=== PATIENT | female | born 1960 | race African-American/Black ===

== ENCOUNTER 2020-12-10 20:24 | Emergency (ER) | payer MEDICARE, MEDICAID ==
[~2020-12-10] VITALS: Ht 162.6 cm; Wt 67.3 kg
[~2020-12-10 20:24] MED LIST: ASPI-1149 PO; CLOP75TA60 PO; DOCU-350 PO; GLYB5 PO; LISI-894 PO; METF-960 PO; NIFE-39 PO; PANT-31 PO; SIMV-260 PO
[2020-12-10] MEDS ORDERED: METF-960 PO (20:36)
[2020-12-10] MEDS ORDERED: XALA2.5OS OU (20:36)
[2020-12-10] MEDS ORDERED: GABA-1181 PO (20:36)
[2020-12-10] MEDS ORDERED: INSU100V SQ (20:36)
[2020-12-10] MEDS ORDERED: METO25 PO (20:36)
[2020-12-10] MEDS ORDERED: BISA-151 PO (20:36)
[2020-12-10] MEDS ORDERED: BACL10TA PO (20:36)
[2020-12-10] MEDS ORDERED: SODIUM CHLORIDE 0.9% 1,000 ML IV ONE (22:30)
[2020-12-10 22:42] LABS: APPEARANCE,URINE CLOUDY (CLEAR); BILIRUBIN,URINE NEGATIVE (NEGATIVE); GLUCOSE, URINE (UA) >=1000 mg/dL (NEGATIVE); KETONES,URINE NEGATIVE (NEGATIVE); LEUKOCYTE ESTERASE ,URINE MODERATE (NEGATIVE); NITRATE,URINE NEGATIVE (NEGATIVE); OCCULT BLOOD,URINE LARGE (NEGATIVE); PH,URINE 5.5 (5.0-8.0); PROTEIN,URINE SEE CONFIRM (NEGATIVE); UROBILINOGEN,URINE 0.2 mg/dL (<=1.0)
[2020-12-10 22:56] LABS: RBC,URINE >100 /HPF (0-2); SULFOSALICYLIC ACID,URINE 3+ (Negative)
[2020-12-10 22:57] LABS: BACTERIA,URINE Moderate /HPF (None Seen); YEAST,URINE Few /HPF (None Seen)
[2020-12-10 22:58] LABS: SQUAMOUS EPITHELIAL CELL,UR Few /LPF (None Seen)
[2020-12-10 23:27] LABS: BASOPHILS % (AUTO) 0.8 % (0.0-2.0); EOSINOPHILS % (AUTO) 1.5 % (1.0-6.0); HEMATOCRIT 37.7 % (36-46); HEMOGLOBIN 12.4 g/dL (12.0-16.0); LYMPHOCYTES # (AUTO) 2.9 K/uL (1.0-4.8); LYMPHOCYTES % (AUTO) 34.4 % (22.0-44.0); MEAN CORPUSCULAR HEMOGLOBIN 28.8 pg (26.0-34.0); MEAN CORPUSCULAR HGB CONC 32.9 G/dL (31.0-37.0); MEAN CORPUSCULAR VOLUME 88 fL (80-100); MONOCYTES # (AUTO) 0.4 K/uL (0.1-1.0); NEUTROPHILS % (AUTO) 58.3 % (40.0-70.0); PLATELET COUNT (AUTO) 335 K/uL (150-450); RED BLOOD CELL COUNT(AUTO) 4.31 MIL/uL (4.00-5.20)
[2020-12-10 23:39] LABS: CREATININE 1.79 mg/dL (0.60-1.30); POTASSIUM 4.4 mmol/L (3.5-5.1)
[2020-12-10] MEDS ORDERED: CEPHALEXIN MONOHYDRATE 500 MG CAPSULE PO ONE (23:45)
[2020-12-10] MEDS ORDERED: PHENAZOPYRIDINE HCL 100 MG TABLET PO ONE (23:45)
[2020-12-10 23:50] LABS: ALBUMIN 3.8 g/dL (3.4-5.0); BILIRUBIN,TOTAL 0.3 mg/dL (0.1-1.0); TOTAL PROTEIN, SERUM 8.4 g/dL (6.4-8.2)
[2020-12-11] MEDS ORDERED: INSULIN REGULAR, HUMAN 100 UNITS/ML IVP ONE (00:15)
[2020-12-11 01:32] VITALS: BP 144/69
[2020-12-11 01:38] LABS: GLUCOSE,POINT OF CARE 183 MG/DL (70-110)
== END 2020-12-11 02:10 | disposition home or self-care (01) ==
LOC: EMS 20:24
DX: N39.0 Urinary tract infection, site not specified (principal); E11.65 Type 2 diabetes mellitus with hyperglycemia; F32.9 Major depressive disorder, single episode, unspecified; I10 Essential (primary) hypertension; F17.210 Nicotine dependence, cigarettes, uncomplicated; Z86.73 Personal history of transient ischemic attack (TIA), and cerebral infarction without residual deficits; Z79.899 Other long term (current) drug therapy; Z79.84 Long term (current) use of oral hypoglycemic drugs; Z88.1 Allergy status to other antibiotic agents
CPT/HCPCS: 36415; 80053; 81001; 82962; 85025; 87077; 87086; 87186; 96361; 96374; 99285; J1815

== ENCOUNTER 2021-04-19 03:18 | Inpatient (IN) | payer MEDICARE, MEDICAID ==
[~2021-04-19] VITALS: Ht 162.6 cm; Wt 63.0 kg
[~2021-04-19 03:18] MED LIST changes: -ASPI-1149 PO; +ASPI325T87 PO; +BACL10TA PO; +BISA-151 PO; +GABA-1181 PO; -GLYB5 PO; +GLYB5TAB10 PO; +INSU100V SQ; +METO25 PO; +XALA2.5OS OU
[2021-04-19 04:06] LABS: BASOPHILS % (AUTO) 0.6 % (0.0-2.0); EOSINOPHILS % (AUTO) 0.6 % (1.0-6.0); HEMOGLOBIN 11.7 g/dL (12.0-16.0); LYMPHOCYTES # (AUTO) 1.9 K/uL (1.0-4.8); LYMPHOCYTES % (AUTO) 26.4 % (22.0-44.0); MEAN CORPUSCULAR HEMOGLOBIN 27.2 pg (26.0-34.0); MEAN CORPUSCULAR HGB CONC 32.5 G/dL (31.0-37.0); MEAN CORPUSCULAR VOLUME 84 fL (80-100); MONOCYTES # (AUTO) 0.3 K/uL (0.1-1.0); MONOCYTES % (AUTO) 4.4 % (2.0-9.0); PLATELET COUNT (AUTO) 350 K/uL (150-450); RED CELL DISTRIBUTION WIDTH 17.2 % (11.5-14.5)
[2021-04-19 04:14] LABS: CALCIUM, TOTAL 8.5 mg/dL (8.8-10.5); CREATININE 1.88 mg/dL (0.60-1.30); POTASSIUM 3.6 mmol/L (3.5-5.1)
[2021-04-19 04:19] LABS: ALBUMIN 3.7 g/dL (3.4-5.0); BILIRUBIN,TOTAL 0.3 mg/dL (0.1-1.0); TOTAL PROTEIN, SERUM 7.4 g/dL (6.4-8.2)
[2021-04-19 05:10] LABS: GLUCOSE,POINT OF CARE 95 MG/DL (70-110)
[2021-04-19 05:43] LABS: COVID AG,FIA SOURCE NASOPHARYNGEAL
[2021-04-19] MEDS ORDERED: DEXTROSE 5%-0.9% SODIUM CHL 1,000 ML IV SCH (05:45)
[2021-04-19 05:49] LABS: APPEARANCE,URINE CLEAR (CLEAR); BILIRUBIN,URINE NEGATIVE (NEGATIVE); GLUCOSE, URINE (UA) NEGATIVE (NEGATIVE); KETONES,URINE NEGATIVE (NEGATIVE); LEUKOCYTE ESTERASE ,URINE TRACE (NEGATIVE); NITRATE,URINE NEGATIVE (NEGATIVE); OCCULT BLOOD,URINE LARGE (NEGATIVE); PH,URINE 5.5 (5.0-8.0); PROTEIN,URINE POS 1+ (NEGATIVE); UROBILINOGEN,URINE 0.2 mg/dL (<=1.0)
[2021-04-19 05:52] LABS: BACTERIA,URINE Few /HPF (None Seen); RBC,URINE 26-50 /HPF (0-2); SQUAMOUS EPITHELIAL CELL,UR Few /LPF (None Seen); WBC,URINE 0-2 /HPF (0-5)
[2021-04-19] MEDS ORDERED: BISACODYL 5 MG EC TABLET PO PRN (06:00)
[2021-04-19] MEDS ORDERED: ONDANSETRON HCL 4 MG/2 ML VIAL IVP PRN (06:00)
[2021-04-19] MEDS ORDERED: ACETAMINOPHEN 325 MG TABLET PO PRN (06:00)
[2021-04-19] MEDS: HEPARIN SODIUM,PORCINE 5,000 UNITS/ML VIAL SQ SCH ×3 (08:00→23:29)
[2021-04-19 08:27] LABS: GLUCOSE,POINT OF CARE 111 MG/DL (70-110)
[2021-04-19] MEDS: METOPROLOL TARTRATE 25 MG TABLET PO SCH ×2 (09:24→21:29)
[2021-04-19] MEDS: ASPIRIN 325 MG DR TABLET PO SCH (09:24)
[2021-04-19] MEDS: CLOPIDOGREL BISULFATE 75 MG TABLET PO SCH (09:24)
[2021-04-19] MEDS: BACLOFEN 10 MG TABLET PO SCH ×2 (09:24→21:28)
[2021-04-19] MEDS: PANTOPRAZOLE SODIUM 40 MG DR TABLET PO SCH (09:24)
[2021-04-19 10:26] VITALS: BP 157/73
[2021-04-19] MEDS: NIFEdipine 60 MG ER TABLET PO SCH (11:02)
[2021-04-19] MEDS: DOCUSATE SODIUM 250 MG CAPSULE PO SCH ×2 (11:03→21:29)
[2021-04-19] MEDS: SIMVASTATIN 20 MG TABLET PO SCH (11:03)
[2021-04-19 15:27] VITALS: BP 146/79
[2021-04-19 16:56] LABS: GLUCOMETER DEV NAME(LOC) 5S.1; GLUCOSE,POINT OF CARE 122 MG/DL (70-110)
[2021-04-19 19:13] VITALS: BP 154/78
[2021-04-19 20:08] LABS: GLUCOMETER DEV NAME(LOC) 5S.1; GLUCOSE,POINT OF CARE 167 MG/DL (70-110)
[2021-04-19] MEDS: LATANOPROST 0.005% 2.5 ML OPHTHALMIC SOLUTION OU SCH (21:28)
[2021-04-19] MEDS: GABAPENTIN 300 MG CAPSULE PO SCH (21:29)
[2021-04-19 21:52] LABS: GLUCOMETER DEV NAME(LOC) 5N.3; GLUCOSE,POINT OF CARE 247 MG/DL (70-110)
[2021-04-19 23:35] VITALS: BP 150/81
[2021-04-20 04:09] VITALS: BP 109/62
[2021-04-20] MEDS ORDERED: INSULIN LISPRO 100 UNITS/ML SQ PRN (06:45)
[2021-04-20] MEDS ORDERED: GLUCAGON,HUMAN RECOMBINANT 1 MG VIAL IM PRN (06:45)
[2021-04-20] MEDS ORDERED: DEXTROSE 50%-WATER 25 GM/50 ML SYG IVP PRN (07:00)
[2021-04-20 08:02] VITALS: BP 117/63
[2021-04-20] MEDS: METOPROLOL TARTRATE 25 MG TABLET PO SCH ×2 (09:00→20:14)
[2021-04-20 09:47] LABS: ALBUMIN 3.7 g/dL (3.4-5.0); BILIRUBIN,TOTAL 0.3 mg/dL (0.1-1.0); CALCIUM, TOTAL 8.7 mg/dL (8.8-10.5); CREATININE 1.69 mg/dL (0.60-1.30); POTASSIUM 4.9 mmol/L (3.5-5.1); TOTAL PROTEIN, SERUM 7.7 g/dL (6.4-8.2)
[2021-04-20] MEDS: HEPARIN SODIUM,PORCINE 5,000 UNITS/ML VIAL SQ SCH ×3 (09:48→23:55)
[2021-04-20] MEDS: PANTOPRAZOLE SODIUM 40 MG DR TABLET PO SCH (09:48)
[2021-04-20] MEDS: DOCUSATE SODIUM 250 MG CAPSULE PO SCH ×2 (09:48→20:14)
[2021-04-20] MEDS: BACLOFEN 10 MG TABLET PO SCH ×2 (09:49→20:13)
[2021-04-20] MEDS: CLOPIDOGREL BISULFATE 75 MG TABLET PO SCH (09:49)
[2021-04-20] MEDS: NIFEdipine 60 MG ER TABLET PO SCH (09:49)
[2021-04-20] MEDS: SIMVASTATIN 20 MG TABLET PO SCH (09:49)
[2021-04-20] MEDS: ASPIRIN 325 MG DR TABLET PO SCH (09:49)
[2021-04-20] MEDS ORDERED: SODIUM CHLORIDE 0.9% 1,000 ML IV ONE (11:15)
[2021-04-20] MEDS: INSULIN LISPRO 100 UNITS/ML SQ PRN ×3 (11:34→20:18)
[2021-04-20 11:46] VITALS: BP 127/76
[2021-04-20 15:27] LABS: APPEARANCE,URINE CLOUDY (CLEAR); BILIRUBIN,URINE NEGATIVE (NEGATIVE); GLUCOSE, URINE (UA) 100 mg/dL (NEGATIVE); KETONES,URINE NEGATIVE (NEGATIVE); LEUKOCYTE ESTERASE ,URINE SMALL (NEGATIVE); NITRATE,URINE NEGATIVE (NEGATIVE); OCCULT BLOOD,URINE LARGE (NEGATIVE); PROTEIN,URINE POS 1+ (NEGATIVE); UROBILINOGEN,URINE 0.2 mg/dL (<=1.0)
[2021-04-20 15:42] VITALS: BP 153/91
[2021-04-20 15:51] LABS: BACTERIA,URINE Many /HPF (None Seen); RBC,URINE 51-100 /HPF (0-2); SQUAMOUS EPITHELIAL CELL,UR Few /LPF (None Seen); WBC,URINE 51-100 /HPF (0-5)
[2021-04-20 16:19] LABS: GLUCOMETER DEV NAME(LOC) 5S.2B; GLUCOSE,POINT OF CARE 258 MG/DL (70-110)
[2021-04-20 19:15] VITALS: BP 101/46
[2021-04-20 20:08] LABS: GLUCOMETER DEV NAME(LOC) 5S.2B; GLUCOSE,POINT OF CARE 189 MG/DL (70-110)
[2021-04-20] MEDS: GABAPENTIN 300 MG CAPSULE PO SCH (20:14)
[2021-04-20] MEDS: INSULIN GLARGINE,HUM.REC.ANLOG 100 UNITS/ML SQ SCH (20:19)
[2021-04-20] MEDS: LATANOPROST 0.005% 2.5 ML OPHTHALMIC SOLUTION OU SCH (20:20)
[2021-04-20 23:29] VITALS: BP 147/92
[2021-04-21 04:45] VITALS: BP 151/87
[2021-04-21 05:24] LABS: GLUCOMETER DEV NAME(LOC) 5S.2B; GLUCOSE,POINT OF CARE 195 MG/DL (70-110)
[2021-04-21] MEDS: INSULIN LISPRO 100 UNITS/ML SQ PRN ×4 (05:42→20:38)
[2021-04-21 06:03] LABS: BASOPHILS % (AUTO) 0.6 % (0.0-2.0); EOSINOPHILS % (AUTO) 1.8 % (1.0-6.0); HEMATOCRIT 37.9 % (36-46); HEMOGLOBIN 12.3 g/dL (12.0-16.0); LYMPHOCYTES # (AUTO) 4.9 K/uL (1.0-4.8); LYMPHOCYTES % (AUTO) 47.3 % (22.0-44.0); MEAN CORPUSCULAR HEMOGLOBIN 27.2 pg (26.0-34.0); MEAN CORPUSCULAR HGB CONC 32.5 G/dL (31.0-37.0); MEAN CORPUSCULAR VOLUME 84 fL (80-100); MONOCYTES # (AUTO) 0.5 K/uL (0.1-1.0); MONOCYTES % (AUTO) 4.7 % (2.0-9.0); NEUTROPHILS # (AUTO) 4.8 K/uL (1.8-7.7); NEUTROPHILS % (AUTO) 45.6 % (40.0-70.0); PLATELET COUNT (AUTO) 404 K/uL (150-450); RED BLOOD CELL COUNT(AUTO) 4.53 MIL/uL (4.00-5.20); RED CELL DISTRIBUTION WIDTH 17.3 % (11.5-14.5)
[2021-04-21 06:59] LABS: CALCIUM, TOTAL 9.2 mg/dL (8.8-10.5); CREATININE 1.5 mg/dL (0.60-1.30); POTASSIUM 4.4 mmol/L (3.5-5.1)
[2021-04-21 07:55] VITALS: BP 108/48
[2021-04-21] MEDS: VANCOMYCIN HCL 1 GM/D5% WATER 200 ML IV SCH (09:32)
[2021-04-21] MEDS ORDERED: SODIUM CHLORIDE 0.9% 250 ML IV ONE (09:33)
[2021-04-21] MEDS: SIMVASTATIN 20 MG TABLET PO SCH (09:40)
[2021-04-21] MEDS: BACLOFEN 10 MG TABLET PO SCH ×2 (09:40→20:36)
[2021-04-21] MEDS: CLOPIDOGREL BISULFATE 75 MG TABLET PO SCH (09:40)
[2021-04-21] MEDS: PANTOPRAZOLE SODIUM 40 MG DR TABLET PO SCH (09:40)
[2021-04-21] MEDS: HEPARIN SODIUM,PORCINE 5,000 UNITS/ML VIAL SQ SCH ×3 (09:40→23:39)
[2021-04-21] MEDS: DOCUSATE SODIUM 250 MG CAPSULE PO SCH ×2 (09:40→20:36)
[2021-04-21] MEDS: ASPIRIN 325 MG DR TABLET PO SCH (09:40)
[2021-04-21 09:49] VITALS: BP 162/61
[2021-04-21] MEDS: METOPROLOL TARTRATE 25 MG TABLET PO SCH ×2 (09:56→20:37)
[2021-04-21] MEDS: NIFEdipine 60 MG ER TABLET PO SCH (09:56)
[2021-04-21 11:44] VITALS: BP 136/77
[2021-04-21] MEDS: CefTRIAXone 1 GM/DEXTROSE 50 ML IV SCH (11:46)
[2021-04-21 16:40] VITALS: BP 135/68
[2021-04-21 17:20] LABS: GLUCOMETER DEV NAME(LOC) 5S.2B; GLUCOSE,POINT OF CARE 227 MG/DL (70-110)
[2021-04-21 17:26] LABS: GLUCOMETER DEV NAME(LOC) 5N.3; GLUCOSE,POINT OF CARE 184 MG/DL (70-110)
[2021-04-21 20:11] VITALS: BP 116/62
[2021-04-21] MEDS: LATANOPROST 0.005% 2.5 ML OPHTHALMIC SOLUTION OU SCH (20:36)
[2021-04-21] MEDS: GABAPENTIN 300 MG CAPSULE PO SCH (20:37)
[2021-04-21] MEDS: INSULIN GLARGINE,HUM.REC.ANLOG 100 UNITS/ML SQ SCH (20:39)
[2021-04-22 00:20] VITALS: BP 120/66
[2021-04-22 04:39] VITALS: BP 133/54
[2021-04-22 05:10] LABS: GLUCOMETER DEV NAME(LOC) 5S.2B; GLUCOSE,POINT OF CARE 243 MG/DL (70-110)
[2021-04-22 05:53] LABS: GLUCOMETER DEV NAME(LOC) 5S.1; GLUCOSE,POINT OF CARE 171 MG/DL (70-110)
[2021-04-22 05:53] LABS: GLUCOMETER DEV NAME(LOC) 5S.1; GLUCOSE,POINT OF CARE 268 MG/DL (70-110)
[2021-04-22 06:23] LABS: CALCIUM, TOTAL 8.8 mg/dL (8.8-10.5); CREATININE 1.44 mg/dL (0.60-1.30); POTASSIUM 4.8 mmol/L (3.5-5.1)
[2021-04-22 07:18] VITALS: BP 131/75
[2021-04-22] MEDS: DOCUSATE SODIUM 250 MG CAPSULE PO SCH (07:52)
[2021-04-22] MEDS: VANCOMYCIN HCL 1 GM/D5% WATER 200 ML IV SCH (07:52)
[2021-04-22] MEDS: HEPARIN SODIUM,PORCINE 5,000 UNITS/ML VIAL SQ SCH ×2 (07:52→07:57)
[2021-04-22] MEDS: ASPIRIN 325 MG DR TABLET PO SCH (07:53)
[2021-04-22] MEDS: METOPROLOL TARTRATE 25 MG TABLET PO SCH (07:53)
[2021-04-22] MEDS: BACLOFEN 10 MG TABLET PO SCH (07:53)
[2021-04-22] MEDS: PANTOPRAZOLE SODIUM 40 MG DR TABLET PO SCH (07:54)
[2021-04-22] MEDS: SIMVASTATIN 20 MG TABLET PO SCH (07:54)
[2021-04-22] MEDS: CLOPIDOGREL BISULFATE 75 MG TABLET PO SCH (07:54)
[2021-04-22] MEDS: NIFEdipine 60 MG ER TABLET PO SCH (07:54)
[2021-04-22] MEDS ORDERED: AMOX1TAB15 PO (10:15)
[2021-04-22] MEDS: CefTRIAXone 1 GM/DEXTROSE 50 ML IV SCH (10:29)
[2021-04-22] MEDS: INSULIN LISPRO 100 UNITS/ML SQ PRN (11:48)
[2021-04-22 12:00] VITALS: BP 119/67
[2021-04-22 14:42] LABS: GLUCOMETER DEV NAME(LOC) 5S.2B; GLUCOSE,POINT OF CARE 89 MG/DL (70-110)
[2021-04-22 14:43] LABS: GLUCOMETER DEV NAME(LOC) 5N.3; GLUCOSE,POINT OF CARE 227 MG/DL (70-110)
[2021-04-22] MEDS ORDERED: INSULIN GLARGINE,HUM.REC.ANLOG 100 UNITS/ML SQ SCH (21:00)
== END 2021-04-22 14:50 | disposition home health service (06) | DRG 637 ==
LOC: EMS 03:23 → 5S 05:59 → UNDODISIN 04-22 10:33
PROVIDERS: ADMIT Internal Medicine; ATTEND Internal Medicine
DX: E11.649 Type 2 diabetes mellitus with hypoglycemia without coma (principal); G93.41 Metabolic encephalopathy; N39.0 Urinary tract infection, site not specified; G82.20 Paraplegia, unspecified; N17.9 Acute kidney failure, unspecified; E78.5 Hyperlipidemia, unspecified; F17.200 Nicotine dependence, unspecified, uncomplicated; I12.9 Hypertensive chronic kidney disease with stage 1 through stage 4 chronic kidney disease, or unspecified chronic kidney disease; E11.22 Type 2 diabetes mellitus with diabetic chronic kidney disease; R68.0 Hypothermia, not associated with low environmental temperature; F32.9 Major depressive disorder, single episode, unspecified; N18.9 Chronic kidney disease, unspecified; Z20.822 Contact with and (suspected) exposure to COVID-19; H40.9 Unspecified glaucoma; Z74.01 Bed confinement status; Z79.4 Long term (current) use of insulin; Z88.2 Allergy status to sulfonamides; Z79.899 Other long term (current) drug therapy; Z79.82 Long term (current) use of aspirin; I69.398 Other sequelae of cerebral infarction
CPT/HCPCS: 76700; 80048; 80053; 81001; 82533; 82948; 82962; 84443; 85025; 87077; 87086; 87186; 93005; 97162; 97166; 97530; 97535; 99291; J0696; J1644; J1815; J2405; J3370; J7030; J7042; J7050